=== PATIENT | male | born 1995 | race Two or more races ===

== ENCOUNTER 2024-02-07 06:12 | Day surgery (SDC) | payer OTHER ==
[2024-02-02 15:20] LABS: Basophils # (auto) 0.1 10 ^3/uL (0-0.2); Mean Corpuscular Hemoglobin 21.5 pg (28.0-32.0); Mean Corpuscular Hgb Conc. 31.9 g/dL (32.0-36.0); Monocytes # (auto) 0.7 10 ^3/uL (0-1.3)
[2024-02-02 15:22] LABS: Basophils % (auto) 1.1 % (0.0-2.0); Eosinophils # (auto) 0.1 10 ^3/uL (0-0.8); Hematocrit 45.3 % (41.0-53.0); Hemoglobin 14.5 g/dL (13.5-17.5); Lymphocytes # (auto) 1.5 10 ^3/uL (0.4-5.4); Mean Corpuscular Volume 67.4 fL (80.0-100.0); Monocytes % (auto) 6.7 % (0.0-12.0); Neutrophils # (auto) 8.3 10 ^3/uL (1.6-8.6); Neutrophils % (auto) 77.2 % (37.0-80.0); Platelet Count (auto) 259 10^3/uL (140-450); Red Blood Cells 6.71 10^6/uL (4.5-5.90); Red Cell Distribution Width 15.2 % (11.8-14.3); White Blood Cell 10.7 10^3/uL (4.4-10.8)
[2024-02-02 15:35] LABS: Alanine Aminotransferase 32 U/L (7-40); Albumin 4.5 g/dL (3.2-4.8); Alkaline Phosphatase 85 U/L (46-116); Anion Gap 6 (5-15); Aspartate Aminotransferase 39 U/L (13-40); BUN/Creatinine Ratio 19.1 (10.0-20.0); Blood Urea Nitrogen 25 mg/dL (9-23); Calcium 10.1 mg/dL (8.7-10.4); Carbon Dioxide 30 mmol/L (20-31); Chloride 103 mmol/L (98-107); Glucose 97 mg/dL (74-106); Potassium 4.7 mmol/L (3.5-5.1); Sodium 139 mmol/L (136-145)
[2024-02-02 15:36] LABS: Bilirubin, Total 0.4 mg/dL (0.2-1.0); Total Protein 7.6 g/dL (5.7-8.2)
[2024-02-02 15:41] LABS: INR 1.01 (0.9-1.15); Partial Thromboplastin Time 26.5 SEC (24.5-34.5); Prothrombin Time 10.7 sec (9.3-11.8)
[2024-02-02 16:12] LABS: Urine Blood Negative /uL (Negative); Urine Clarity Clear (Clear); Urine Color Light-Yellow (Yellow); Urine Protein, UAD Negative (Negative); Urine Specific Gravity 1.016 (1.001-1.035); Urine Urobilinogen Normal (Negative); Urine WBC <1 /hpf (0 - 3); Urine pH 5.5 (5.0-9.0)
[~2024-02-07] VITALS: Ht 172.7 cm; Wt 81.6 kg
[2024-02-07] MEDS ORDERED: MEPERIDINE HCL (25 MG/ML) 1ML VIAL ONE (09:11)
[2024-02-07] MEDS ORDERED: fentaNYL CITRATE 100 MCG/2 ML VL ONE (09:11)
[2024-02-07] MEDS ORDERED: MIDAZOLAM HCL 2MG/2ML 2ml VIAL (1mg/ml) ONE (09:11)
[2024-02-07] MEDS: ceFAZolin 2 GM/D5W100ml 100 ML IV ONE (09:15)
[2024-02-07] MEDS ORDERED: MORPHINE SULFATE 4 MG/ML SYR/VIAL IV PRN (09:45)
[2024-02-07] MEDS ORDERED: HYDROmorphone HCL 2 MG/ML VL/or syr IV PRN (09:45)
[2024-02-07] MEDS ORDERED: ePHEDrine SULFATE 50 MG/ML AMP IV PRN (09:45)
[2024-02-07] MEDS ORDERED: MIDAZOLAM HCL 2MG/2ML 2ml VIAL (1mg/ml) IV PRN (09:45)
[2024-02-07] MEDS ORDERED: hydrALAZINE HCL 20 MG/ML VL IV PRN (09:45)
[2024-02-07] MEDS ORDERED: KETOROLAC TROMETH 30 MG/ML 1ML VIAL IV ONE (09:45)
[2024-02-07] MEDS ORDERED: ONDANSETRON HCL 4 MG/2 ML VIAL IV ONE (09:45)
[2024-02-07] MEDS: BUPIVACAINE HCL 50 ML ONE (09:46)
[2024-02-07] MEDS ORDERED: DexAMETHasone SOD PHOS 10MG/1ML VIAL INJ ONE (10:21)
[2024-02-07] MEDS ORDERED: PROPOFOL 10 MG/ML 20 ML IV ONE (10:21)
[2024-02-07 10:45] VITALS: TEMP 97; O2SAT 100
--- NOTE | 2024-02-07 11:08 | DVH ---
XY L ANKLE 2 VIEW XRAY, HISTORY: OR TECHNICAL DATA: 5 intraoperative fluoroscopic spot images were obtained ankle. COMPARISON: None FINDINGS/IMPRESSION: C-arm fluoroscopic images were obtained for anatomic localization. The images are of low resolution b ut demonstrate instrumention over the ankle . Total fluoroscopy time was not available. Please see th e operative report for further details.
--- NOTE | 2024-02-07 11:11 | DVHOP2 ---
Operative Report - 2 Report Details Date: 02/07/24 Preop Diagnosis: Left ankle instability, chondromalacia, possible loose body Postop Diagnosis: Left ankle instability, chondromalacia, large loose body Surgeon: Lu Hassan MD Chyron Operator: Lilian Kat, Physician Chyron Operator Anesthesiologist: Dr Tariq Anesthesia: General Implant: Arthrex FiberTak x2 Consent: The patient was informed of the risks and benefits of the procedure. These include but are not limited to complications of anesthesia, postoperative infection, incomplete relief of symptoms, recurrence of symptoms, damage to blood vessels, nerves and tendons, deep venous thrombosis, pulmonary embolism a nd possible need for repeat surgery in the future. Complications: None Estimated Blood Loss: Less than 10 mL Indications for Surgery: The patient is a 28-year-old male who presented to the clinic with a history of ankle pain and instability. He had multiple episodes of instability. He also had some mechanical issues. Benefits, risks and treatment alternatives were discussed. He had failed thorough nonoperative management including physical t herapy and braces. Surgery in the form of ankle arthroscopy, ligament repair was discussed with him. Benefits, risks and treatment alternatives were discussed. Specific complications of the surgery such as neurovascular injury, infection, arthrofibrosis, loss of limb or life were discussed. He decided to proceed with the surgical option. Name of Procedure Performed Left ankle arthroscopy, loose body removal, extensive synovial debridement, anterior talofibular ligament repair with Brostrom modification Procedure Details Procedure Details: The patient was identified in the preoperative holding area and the surgical site was marked. The consent was verified. The patient was brought into the operating room and placed supine on the operating table. General anesthesia was administered. Intravenous antibiotics were given. The extremity was prepped and draped in the usual sterile manner. A time-out was called to confirm the nature of patient, the nature of surgery, the site of surgery, the availability of implants and x-rays and allergies to medications. The tibialis anterior tendon was palpated and was marked. The joint lines was identified. The joint was now insufflated with a spinal needle medial to the tibialis anterior tendon. A small incision was made. Next a hemostat was inserted to dilate the portal. A trocar and cannula was inserted. A 30 degree scope was inserted. An anterolateral portal was established with the help of a spinal needle as well. A probe was inserted and the findings were as follows 1. Anterior synovial impingement 2. Significant laxity with positive drive-through sign all the way to the posterior 3. Significant cartilage damage distal tibia , anterior aspect only 4. Large loose body Synovial debridement was carried out with the help of a shaver. The loose body was removed uneventfully. It was scarred to the anterior tibia. This was teased out with the help of a shaver. This was osteochondral in nature. The cartilage flap was debrided with a shaver as well. I proceeded with the open part of the procedure. An incision was made on the anterolateral part of the fibula. The skin and the subcutaneous tissue were dissected. The deep fascia was incised. The anterior talofibular ligament was exposed. This was stretched but overall was of great quality. The extensor retinaculum was also of great quality. I decided to repair it and do Brostrom modification. Two FiberTak suture anchors were inserted on the anterior distal fibula. All the eight sutures were passed through the ligament and the extensor retinaculum. The ankle was now held in eversion. The sutures from the all suture anchors were now tied in a simple fashion. Excellent fixation was noted. The ankle was very stable after the fixation. The tourniquet was released. The skin incision was closed in layers of 0 Vicryl and 2-0 Vicryl. Sterile dressing was applied. The leg was placed in a cam walker. Disposition: Good, the patient was extubated and taken to the recovery without any complications Plan: Partial weight-bearing. To follow up in two weeks and to initiate physical therapy at 4-6 weeks. Condition Good Disposition Home LU HASSAN MD Feb 07, 2024 11:11
--- NOTE | 2024-02-07 11:24 | DVH ---
C-ARM FLUOROSCOPY: PROCEDURE: Ligament repair FLUOROSCOPY TIME: 2 seconds
[2024-02-07 11:50] VITALS: BP 109/73; PULSE 58; RESP 15; O2SAT 100
== END 2024-02-07 10:32 | disposition home or self-care (01) ==
LOC: SUR 06:12
PROVIDERS: ATTEND Orthopaedic Surgery Sports Medicine
DX: M25.372 Other instability, left ankle (principal); S93.492A Sprain of other ligament of left ankle, initial encounter; M94.272 Chondromalacia, left ankle and joints of left foot; M24.072 Loose body in left ankle; M26.81 Anterior soft tissue impingement; M25.872 Other specified joint disorders, left ankle and foot; N18.2 Chronic kidney disease, stage 2 (mild); F41.9 Anxiety disorder, unspecified; Z98.52 Vasectomy status; X58.XXXA Exposure to other specified factors, initial encounter; Y93.89 Activity, other specified; Y92.89 Other specified places as the place of occurrence of the external cause; Y99.8 Other external cause status
CPT/HCPCS: 27695; 29898; 36415; 73600; 80053; 81001; 85025; 85610; 85730; C1713; J1100; J2175; J2250; J2704; J3010; J3490; 76000